=== PATIENT | male | born 1990 | race African-American/Black ===

== ENCOUNTER 2019-08-17 11:05 | Emergency (ER) | payer BC ==
[~2019-08-17] VITALS: Ht 177.8 cm; Wt 110.7 kg
--- NOTE | 2019-08-17 11:13 | NUR ---
Patient is AOx4, speaking in complete sentences, speech is clear. Able to follow /comprehend directions. Gait is ASSISTED WITH WALKER . No cardiovascular distress noted. Rate/rhythm regular. No CP. No respiratory distress noted. Respirations even , unlabored, symmetrical chest rise. No adventitious sounds noted. Chief complaint: Patient comes in C/O CHRONIC R HIP PAIN. Denies Fever/Chills. No recent travel. +FALL AT WORK AND HIP REPLACEMENT 7MOS AGO, DVT 6MOS AGO/NKDA. +PHYSICAL THERAPY SAFETY Patient in bed, bed in lowest position. Siderails up x 2. Call light within reach. Will continue to monitor accordingly ERMD AT BEDSIDE FOR HX AND PHYSICAL
--- NOTE | 2019-08-17 11:30 | NUR ---
PATRICIA YOUNGER AT BEDSIDE
--- NOTE | 2019-08-17 11:56 | NUR ---
Patient discharged to home in stable condition. Written and verbal after care instructions given. Patient verbalizes understanding of instructions. Stressed follow up or return to ER for worsening s/s. all belongings w/ pt
[2019-08-17 11:59] VITALS: BP 148/89
== END 2019-08-17 12:00 | disposition home or self-care (01) ==
LOC: ER 11:05
DX: M79.661 Pain in right lower leg (principal); R22.41 Localized swelling, mass and lump, right lower limb; Z86.718 Personal history of other venous thrombosis and embolism; Z96.641 Presence of right artificial hip joint
CPT/HCPCS: A4663

== ENCOUNTER 2020-09-10 16:15 | Emergency (ER) | payer BC, OTHER ==
[~2020-09-10] VITALS: Ht 177.8 cm; Wt 110.7 kg
[~2020-09-10 16:15] MED LIST: ACET-2605 PO; AMPH15TA2 PO; BICT1TAB PO
[2020-09-10] MEDS ORDERED: predniSONE 20 MG TABLET PO ONE (17:45)
[2020-09-10] MEDS ORDERED: predniSONE 20 MG TABLET ONE (18:13)
[2020-09-10] MEDS ORDERED: HYDR-3980 PO (18:35)
[2020-09-10] MEDS ORDERED: PRED20TA PO (18:35)
--- NOTE | 2020-09-10 19:16 | NUR ---
Patient discharged to home in stable condition. Written and verbal after care instructions given. Patient verbalizes understanding of instructions. Stressed follow up or return to ER for worsening s/s. Patient ambulated with steady gait using a front whee walker.
[2020-09-10 19:22] VITALS: BP 139/88
== END 2020-09-10 19:22 | disposition home or self-care (01) ==
LOC: ER 16:15
DX: M54.41 Lumbago with sciatica, right side (principal); R10.31 Right lower quadrant pain; Z96.641 Presence of right artificial hip joint; Z86.718 Personal history of other venous thrombosis and embolism; F90.9 Attention-deficit hyperactivity disorder, unspecified type; Z79.899 Other long term (current) drug therapy
CPT/HCPCS: 93971; 99284; J7512; A4663

== ENCOUNTER 2022-05-12 15:36 | Inpatient (IN) | payer BC, OTHER ==
[~2022-05-12] VITALS: Ht 177.8 cm; Wt 120.2 kg
[~2022-05-12 15:36] MED LIST changes: +HYDR-3980 PO; +PRED20TA PO
--- NOTE | 2022-05-12 15:56 | NUR ---
X-ray at the bedside.
[2022-05-12] MEDS ORDERED: ASPI81TA31 PO (16:05)
[2022-05-12] MEDS ORDERED: D-AM5CAP2 PO (16:05)
[2022-05-12] MEDS ORDERED: ONDA4TAB11 PO (16:05)
[2022-05-12] MEDS ORDERED: DEXL60CA3 PO (16:05)
[2022-05-12] MEDS ORDERED: ECON15CR4 TP (16:05)
[2022-05-12] MEDS ORDERED: FLUN25SP BNOSTRILS (16:05)
[2022-05-12] MEDS ORDERED: DOCU100C36 PO (16:05)
[2022-05-12] MEDS ORDERED: IBUP-1955 PO (16:05)
[2022-05-12] MEDS ORDERED: CICL6.6S5 TP (16:05)
[2022-05-12] MEDS ORDERED: NORT25CA PO (16:05)
[2022-05-12] MEDS ORDERED: CHLO25TA2 PO (16:05)
[2022-05-12] MEDS ORDERED: DOLU1TAB2 PO (16:05)
[2022-05-12] MEDS ORDERED: PROPOFOL 200 MG/20 ML BOTTLE ONE ×2 (16:06→16:39)
[2022-05-12] MEDS ORDERED: ONDANSETRON 4 MG/2 ML VIAL ONE ×2 (16:06→16:39)
[2022-05-12] MEDS ORDERED: MORPHINE SULFATE 4 MG/1 ML DISP.SYRIN ONE ×2 (16:07→18:07)
[2022-05-12] MEDS ORDERED: MORPHINE SULFATE 4 MG/1 ML DISP.SYRIN IV ONE ×2 (16:15→18:00)
[2022-05-12] MEDS ORDERED: IV NORMAL SALINE 1000 ML BAG IV ONE (16:15)
[2022-05-12] MEDS ORDERED: PROPOFOL 200 MG/20 ML BOTTLE IV ONE (16:15)
[2022-05-12] MEDS ORDERED: ONDANSETRON 4 MG/2 ML VIAL IV ONE (16:15)
--- NOTE | 2022-05-12 16:31 | NUR ---
Patient underwent moderate sedation for right hip alignment. Preprocedural timeout conducted. Patient on continuous monitoring. Will continue to monitor.
[2022-05-12] MEDS ORDERED: METOCLOPRAMIDE HCL 10 MG/2 ML VIAL ONE (16:39)
[2022-05-12] MEDS ORDERED: LIDOCAINE-MPF 2% 5 ML VIAL ONE (16:39)
[2022-05-12] MEDS ORDERED: SUCCINYLCHOLINE CHLORIDE 200 MG/10 ML VIAL ONE (16:39)
[2022-05-12] MEDS ORDERED: CEFAZOLIN 1 G VIAL ONE (16:39)
--- NOTE | 2022-05-12 17:06 | NUR ---
Paged Dr. Bennett for ortho consult, awaiting a call back.
[2022-05-12] MEDS ORDERED: REMEDY ESSENTIAL ZINC PASTE 113 GM TP PRN (17:30)
[2022-05-12] MEDS ORDERED: ACETAMINOPHEN 325 MG TABLET PO PRN (17:30)
[2022-05-12] MEDS ORDERED: ONDANSETRON 4 MG/2 ML VIAL IV PRN (17:30)
[2022-05-12] MEDS ORDERED: MAGNESIUM HYDROXIDE 30 ML LIQUID UDC PO PRN (17:30)
[2022-05-12] MEDS ORDERED: HYDROCODONE/APAP 5-325MG TABLET PO PRN (17:30)
[2022-05-12 17:35] LABS: HEMATOCRIT 41.2 % (36.7-47.1); MEAN CORPUSCULAR HEMOGLOBIN 24.6 uug (23.8-33.4); MEAN CORPUSCULAR VOLUME 77.5 fL (73.0-96.2); PLATELET COUNT (AUTO) 308 K/uL (152-348)
[2022-05-12 17:43] LABS: CREATININE 1.2 mg/dL (0.6-1.3); POTASSIUM 3.8 mmol/L (3.5-5.1)
--- NOTE | 2022-05-12 19:20 | NUR ---
Called third floor for med-surg bed. Waiting for call back.
--- NOTE | 2022-05-12 19:58 | NUR ---
Patient will be going to third floor Room 329-A.
[2022-05-12] MEDS ORDERED: MORPHINE SULFATE 2 MG/1 ML DISP.SYRIN ONE (20:36)
[2022-05-12] MEDS: MORPHINE SULFATE 2 MG/1 ML DISP.SYRIN IV PRN ×2 (20:37→20:40)
--- NOTE | 2022-05-12 20:41 | NUR ---
PATIENT MEDICATED PER ORDER FOR C/O PAIN. PATIENT AWARE WILL BE ADMITTED TO THE HOSPITAL AWAITING TRANSPORT TO ROOM.
[2022-05-12] MEDS: ENOXAPARIN SODIUM 40 MG/0.4 ML DISP.SYRIN SQ SCH ×2 (21:00→22:01)
--- NOTE | 2022-05-12 21:00 | NUR ---
Giancarlo ng in [facility] - 05/12/22 at 2244 by BLAKE Gave report to Edil CABA
--- NOTE | 2022-05-12 21:35 | NUR ---
Gave report to Will GERTRUDIS.
--- NOTE | 2022-05-12 21:35 | NUR ---
Lovenox meds not given, patient received lovenox at ER. Addendum: 05/13/22 at 0023 by GURINDER MERCADO RN Lovenox meds not given, patient received lovenox at ER. charting in error.
[2022-05-12] MEDS ORDERED: ENOXAPARIN SODIUM 40 MG/0.4 ML DISP.SYRIN SQ ONE (22:00)
--- NOTE | 2022-05-12 22:03 | NUR ---
Lovenox given at 22:03
--- NOTE | 2022-05-12 22:11 | NUR ---
Patient taken third floor room 329 via gurney (by [employer] attendant) with personal belongins. Patient in stable conditions, no signs of distress. No pain at this time.
--- NOTE | 2022-05-12 22:15 | NUR ---
Admitted patient in Med surg floor under the care of Rowan Anders, alert oriented, able to make needs known, with DX of Right hip dislocation. Patient complain of 7/10 pain, with right hip brace, with two healed scars on right hip. Patient oriented to room, call lights and tv remotes. Patient kept comfortable, call lights within reach, instructed patient to ate anything for now but after midnight he's going to be NPO, able to follow.
[2022-05-12 22:45] VITALS: BP 136/86
--- NOTE | 2022-05-12 22:47 | NUR ---
Morphine 4mg given at 16:16. Not reassessed by previous RN, marked as not done. Zofran 4mg given at 16:16. Not reassessed by previous RN, marked as not done. Morphine 4mg given at 18:09. Not reassessed by previous RN, marked as not done. IV NS 0.9% 1L given at 16:16. Not reassessed by previous RN, marked as not done.
[2022-05-13] MEDS: MORPHINE SULFATE 2 MG/1 ML DISP.SYRIN IV PRN ×3 (00:44→16:24)
[2022-05-13] MEDS ORDERED: ZOLPIDEM 5 MG TABLET PO PRN (01:15)
[2022-05-13] MEDS: ZOLPIDEM 5 MG TABLET PO PRN ×3 (01:34→23:58)
--- NOTE | 2022-05-13 04:55 | NUR ---
Patient asleep but arousable, no complain of pain at this time, informed patient that he's going to be NPO after midnight, for possible surgery of the right hip, patient mentioned he's not getting surgery from our ortho MD, prefer surgery done by his own ortho MD, will endorse to AM RN, patient has a personal black bag, prefer not be touch or inspected, patient alert oriented, respect patient wishes. cont to monitor.
[2022-05-13 06:23] VITALS: BP 121/76
--- NOTE | 2022-05-13 06:31 | NUR ---
patient requesting ferritin lab works, notify Kevin Danielle awaiting for order, endorse to next shift.
--- NOTE | 2022-05-13 07:46 | NUR ---
PER THE NOC NURSE NO SURGERY PLANNED FOR TODAY SO PATIENT CAN RESUME HIS REGULAR DIET ALSO STATED THAT BHARATHI DIGGS OKAYED FOR PATIENT TO HAVE FERRITIN LEVEL ORDERED AT THIS TIME
[2022-05-13 07:50] LABS: HEMATOCRIT 38.3 % (36.7-47.1); MEAN CORPUSCULAR VOLUME 77.5 fL (73.0-96.2); PLATELET COUNT (AUTO) 298 K/uL (152-348)
[2022-05-13 08:06] LABS: CREATININE 1.1 mg/dL (0.6-1.3); MAGNESIUM 2.1 mg/dL (1.8-2.4); PHOSPHOROUS 3.4 mg/dL (2.5-4.9); POTASSIUM 3.6 mmol/L (3.5-5.1)
--- NOTE | 2022-05-13 09:08 | NUR ---
CALL RECEIVED FROM DR SHANNON WANTED TO KNOW WHY THE PATIENT WAS HERE AND I TOLD HIM HE ALSO WANTED TO KNOW IF PATIENT WAS NPO AND I TOLD HIM NO BECAUSE PER REPORT PATIENT CAN EAT THERE WILL BE NO SURGERY TODAY AND HE STATED OKAY THANKS
[2022-05-13 11:16] VITALS: BP 122/70
--- NOTE | 2022-05-13 11:30 | NUR ---
PATIENT CALLED AND STATED THAT NO ONE HAS GIVEN HIM HIS PAIN MEDICATIONS AND HIS ROUTINE MEDS TOLD HIM THAT HIS PAIN MEDICATION IS NEEDED AND HE HAS NOT CALLED TO REQUEST FOR IT AND EVEN WHEN I GAVE HIM HIS BREAKFAST HE WAS SO NASTY AND JUST ASKED ME TO LEAVE AND CLOSE THE DOOR BEHIND ME SO I DID.
--- NOTE | 2022-05-13 11:32 | NUR ---
MEDICATED WITH MORPHINE ORDERED FOR PAIN AND CALLED DR JOLENE GARCIA AND ASKED TO RECONCILE PATIENTS HOME MEDICATIONS JOLENE STATED THAT SHE WILL BE HERE WITHIN THE HOUR TO RECONCILE PATIENT NOTIFIED.
[2022-05-13] MEDS ORDERED: IBUPROFEN 600 MG TABLET PO PRN (11:45)
[2022-05-13] MEDS ORDERED: DEXTROAMPHETAMINE SULFATE PO SCH (11:45)
--- NOTE | 2022-05-13 12:00 | NUR ---
NEW ORDERS NOTED FROM JOLENE RE HIS HOME MEDICATIONS AND NOTED
[2022-05-13] MEDS ORDERED: AMPH15CA3 PO (12:10)
[2022-05-13] MEDS ORDERED: PREG150C PO (12:13)
[2022-05-13] MEDS: DOCUSATE SODIUM 100 MG CAPSULE PO SCH ×2 (12:21→21:59)
[2022-05-13] MEDS: CHLORTHALIDONE 25 MG TABLET PO SCH (12:21)
[2022-05-13] MEDS: PANTOPRAZOLE SODIUM 40 MG TABLET.DR PO SCH (12:21)
[2022-05-13] MEDS: ASPIRIN 81 MG TAB.CHEW PO SCH (12:21)
--- NOTE | 2022-05-13 13:12 | NUR ---
MCWILLIAMS HERE SPOKE WITH PATIENT AND THE PLAN IS THAT HE WILL GET HIS NORCO ORDERED AND WILL WAIT FOR DR SHANNON RE PLAN OF CARE FOR THE MANIPULATION OF THE RIGHT HIP
[2022-05-13] MEDS: PREGABALIN 50 MG CAPSULE PO SCH ×2 (13:40→22:00)
[2022-05-13 15:07] VITALS: BP 126/78
--- NOTE | 2022-05-13 15:17 | NUR ---
DR SHANNON HERE SEEN PATIENT WITH NO NEW ORDERS AT THIS TIME.
[2022-05-13] MEDS: ECONAZOLE CREAM 30 GM TUBE TP SCH (16:24)
[2022-05-13] MEDS ORDERED: NORTRIPTYLINE HCL 25 MG CAPSULE PO SCH ×2 (18:00→21:00)
--- NOTE | 2022-05-13 18:00 | NUR ---
CALLED DR SHANNON TO INQUIRE ON NEXT PLAN OF CARE SINCE HE DID NOT DOCUMENT ANYTHING IN THE MEDI TAKE PLACE.TECT WITH ORDERS BUT STATED DOES NOT KNOW WHEN THE PROCEDURE WILL
--- NOTE | 2022-05-13 18:15 | NUR ---
PATIENT NOTIFIED OF DR SHANNON ORDERS AND HE SIGNED THE CONSCENT.
[2022-05-13 20:00] VITALS: BP 146/84
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
[2022-05-13] MEDS ORDERED: DOVATO PO SCH (21:00)
[2022-05-13] MEDS: ENOXAPARIN SODIUM 40 MG/0.4 ML DISP.SYRIN SQ SCH (21:00)
[2022-05-13] MEDS ORDERED: HOME MED MISCELLANEOUS PO SCH (21:00)
--- NOTE | 2022-05-13 22:46 | NUR ---
lyrica 75mg not administered. Patient informs this nurse that he already took Dovato home medication together with lyrica at 1800.
[2022-05-14] MEDS: MORPHINE SULFATE 2 MG/1 ML DISP.SYRIN IV PRN ×2 (00:10→07:10)
[2022-05-14 04:00] VITALS: BP 121/72
[2022-05-14] MEDS: PREGABALIN 50 MG CAPSULE PO SCH (06:48)
[2022-05-14] MEDS: PANTOPRAZOLE SODIUM 40 MG TABLET.DR PO SCH (06:49)
[2022-05-14 07:13] VITALS: BP 121/72
[2022-05-14] MEDS: CHLORTHALIDONE 25 MG TABLET PO SCH (09:00)
[2022-05-14] MEDS: DOCUSATE SODIUM 100 MG CAPSULE PO SCH (09:00)
[2022-05-14] MEDS: ECONAZOLE CREAM 30 GM TUBE TP SCH (09:00)
[2022-05-14] MEDS: ASPIRIN 81 MG TAB.CHEW PO SCH (09:00)
--- NOTE | 2022-05-14 10:47 | NUR ---
SW consult requested for a 31-year-old black male who was admitted to the hospital for hip pain. Patient is alert and oriented X4 and presents with anxious mood and congruent affect. Patients psychologist, Dr. Yanely Vogel was on the phone with the patient during the assessment. Patient states his primary contact is his mother, Verónica Victor ([phone]) who lives in [place] and they have a good relationship. Patient states he currently lives alone at [address] [place] [address] [address], [place] [address]. Patient states he has a walking stick, walker and wheelchair at home and is receiving disability benefits. Patient denies a history of substance abuse and there is no toxicology report. Patient states he has a history of depression, anxiety, PTSD and ADHD. Patient states he sees a psychologist, Dr. Yanely Vogel every other week and is taking medication from his primary physician, Dr. Mckeon. Patient denies suicidal or homicidal ideation. Patient states his plan for discharge is for his mother, Verónica Victor ([phone]), to take him home to [id number] [place] [address]. [address], [place] [address].
[2022-05-14 12:00] VITALS: BP 147/88
[2022-05-14] MEDS ORDERED: SUCCINYLCHOLINE CHLORIDE 200 MG/10 ML VIAL ONE (15:30)
[2022-05-14] MEDS ORDERED: MORPHINE SULFATE 2 MG/1 ML DISP.SYRIN IV PRN (17:15)
[2022-05-14] MEDS ORDERED: IV D5W-0.45% NS +20 KCL 1,000 ML IV PRN (17:15)
[2022-05-14] MEDS ORDERED: HYDROCODONE/APAP 10-325 MG TABLET PO PRN (17:15)
--- NOTE | 2022-05-14 20:05 | NUR ---
Patient discharge to home, picked up by a friend via private car. Patient AAOx4. Denies any pain or SOB. VS WNL. Belonging list completed. Patient to bead picker home medication tomorrow as pharmacy is already close. IV discontinued.
== END 2022-05-14 20:39 | disposition home or self-care (01) | DRG 560 ==
LOC: ER 15:36 → MEDSURG3 20:34
PROVIDERS: ADMIT Nurse Practitioner Acute Care; ATTEND Nurse Practitioner Acute Care
PROC: 0SW9XJZ Revision of Synthetic Substitute in Right Hip Joint, External Approach (ICD-10-PCS; principal; 2022-05-14)
DX: T84.020A Dislocation of internal right hip prosthesis, initial encounter (principal); D68.59 Other primary thrombophilia; Z74.09 Other reduced mobility; Z86.718 Personal history of other venous thrombosis and embolism; E66.9 Obesity, unspecified; Z68.38 Body mass index [BMI] 38.0-38.9, adult; F98.8 Other specified behavioral and emotional disorders with onset usually occurring in childhood and adolescence; G89.11 Acute pain due to trauma; Y83.8 Other surgical procedures as the cause of abnormal reaction of the patient, or of later complication, without mention of misadventure at the time of the procedure; Y79.2 Prosthetic and other implants, materials and accessory orthopedic devices associated with adverse incidents; Y92.009 Unspecified place in unspecified non-institutional (private) residence as the place of occurrence of the external cause; Z79.82 Long term (current) use of aspirin
CPT/HCPCS: 36415; 71045; 73502; 73503; 83735; 84100; 85025; 85730; 93005; G0378; G0500; J0330; J0690; J1650; J2270; J2405; J2765; J3490; J7040